=== PATIENT | female | born 1960 | race American Indian/Alaskan Native ===

== ENCOUNTER 2017-01-25 00:03 | Emergency (ER) | payer SELFPAY ==
[2017-01-25 00:18] VITALS: BP 156/88
[2017-01-25 01:18] LABS: Basophils % (Auto) 0.8 % (0.0-1.8); Eosinophils % (Auto) 2.6 % (0.0-4.3); Hematocrit 38.2 % (30.3-42.9); Hemoglobin 12.7 gm/dl (10.1-14.3); Mean Corpuscular HGB Conc 33 % (30-34); Mean Corpuscular Hemoglobin 28 pg (28-32); Mean Corpuscular Volume 83 fl (79-97); Platelet Count 284 K/mm3 (140-440); Red Blood Count 4.59 M/mm3 (3.65-5.03); Red Cell Distribution Width 15.7 % (13.2-15.2); White Blood Count 8.9 K/mm3 (4.5-11.0)
[2017-01-25 01:40] LABS: Anion Gap 17 mmol/L; BUN/Creatinine Ratio 18.33; Blood Urea Nitrogen 11 mg/dL (7-17); Calcium 9.4 mg/dL (8.4-10.2); Carbon Dioxide 27 mmol/L (22-30); Chloride 99.8 mmol/L (98-107); Glucose 99 mg/dL (65-100); Potassium 3.3 mmol/L (3.6-5.0); Sodium 140 mmol/L (137-145)
== END 2017-01-25 04:00 | disposition left against medical advice (07) ==
LOC: ED 00:03
DX: R07.9 Chest pain, unspecified (principal); Z53.21 Procedure and treatment not carried out due to patient leaving prior to being seen by health care provider
CPT/HCPCS: 36415; 80048; 82962; 84484; 84703; 85025; 93005; 93010

== ENCOUNTER 2017-04-30 10:07 | Emergency (ER) | payer OTHER ==
[2017-04-30 10:48] LABS: Hematocrit 38.6 % (30.3-42.9); Hemoglobin 12.6 gm/dl (10.1-14.3); Mean Corpuscular HGB Conc 33 % (30-34); Mean Corpuscular Hemoglobin 28 pg (28-32); Mean Corpuscular Volume 85 fl (79-97); Platelet Count 291 K/mm3 (140-440); Red Blood Count 4.56 M/mm3 (3.65-5.03); Red Cell Distribution Width 14.5 % (13.2-15.2); White Blood Count 9.8 K/mm3 (4.5-11.0)
[2017-04-30 10:53] LABS: Anion Gap 16 mmol/L; BUN/Creatinine Ratio 28; Blood Urea Nitrogen 14 mg/dL (7-17); Calcium 8.9 mg/dL (8.4-10.2); Carbon Dioxide 28 mmol/L (22-30); Chloride 103.6 mmol/L (98-107); Glucose 92 mg/dL (65-100); Potassium 3.9 mmol/L (3.6-5.0); Sodium 144 mmol/L (137-145)
[2017-04-30 11:16] LABS: Bilirubin,Urine NEG (Negative); Blood,Urine NEG (Negative); Ketones,Urine NEG (Negative); Leukocyte Esterase,Urine NEG (Negative); Nitrite,Urine NEG (Negative); Protein,Urine <15 mg/dL mg/dL (Negative); RBC,Urine < 1.0 /HPF (0.0-6.0); Urobilinogen,Urine < 2.0 mg/dL (<2.0); WBC,Urine < 1.0 /HPF (0.0-6.0)
[2017-04-30 11:53] LABS: Basophils % (Manual) 0 % (0.0-1.8); Blastocytes % (Manual) 0 %
[2017-04-30 11:54] LABS: Diff Status Complete; RBC Morphology Normal
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
[2017-04-30 17:57] VITALS: BP 112/42
== END 2017-04-30 17:55 | disposition home or self-care (01) ==
LOC: ED 10:07
DX: R42 Dizziness and giddiness (principal); R53.1 Weakness; I10 Essential (primary) hypertension; E11.9 Type 2 diabetes mellitus without complications; J45.909 Unspecified asthma, uncomplicated; F12.10 Cannabis abuse, uncomplicated; Z87.891 Personal history of nicotine dependence; Z88.2 Allergy status to sulfonamides
CPT/HCPCS: 36415; 80048; 81001; 83690; 85007; 85025; 93005; 93010; 99283

== ENCOUNTER 2017-08-29 08:29 | Emergency (ER) | payer SELFPAY ==
[2017-08-29 09:03] VITALS: BP 143/77
--- NOTE | 2017-08-29 10:09 | Emergency Department Report ---
ED General Adult HPI - General Chief complaint: Sore Throat Stated complaint: SORE THROAT Time Seen by Provider: 08/29/17 10:01 Source: patient Mode of arrival: Ambulatory Limitations: No Limitations - History of Present Illness Initial comments: Patient is 56 years old female history of hypertension and asthma. Presented with a 3 day history of sore throat and fever. Patient denied any difficulty swallowing or difficulty breathing. She stated that her son has the same symptoms. - Related Data Previous Rx's Medication Instructions Recorded Last Taken Type Lisinopril/Hydrochlorothiazide 1 tab PO QDAY #30 tablet 02/26/13 12/23/15 Rx [Zestoretic 10-12.5 mg] Ibuprofen [Motrin 800 MG tab] 800 mg PO Q8HR #30 tablet 09/26/15 12/23/15 Rx Azithromycin [Zithromax Z-MAYKEL] 1 dose PO DAILY 5 Days tab 12/24/15 Unknown Rx HYDROcodone/APAP 5-325 [[place] 1 each PO Q6HR PRN #20 tablet 12/24/15 Unknown Rx 5/325] Prednisone [predniSONE 10 mg 10 mg PO .TAPER #1 tab.ds.pk 12/24/15 Unknown Rx (6-Day Pack, 21 Tabs)] Meclizine [Antivert] 25 mg PO TID PRN #15 tablet 04/30/17 Unknown Rx Allergies Allergy/AdvReac Type Severity Reaction Status Date / Time sulfamethoxazole Allergy Hives Verified 04/30/17 10:24 [From Bactrim] trimethoprim [From Bactrim] Allergy Hives Verified 04/30/17 10:24 ED Review of Systems ROS: Stated complaint: SORE THROAT Other details as noted in HPI Comment: All other systems reviewed and negative ENT: throat pain Respiratory: denies: cough, shortness of breath Cardiovascular: denies: chest pain ED Past Medical Hx - Past Medical History Hx Hypertension: Yes Hx Diabetes: Yes Hx Asthma: Yes Additional medical history: Obesity - Surgical History Past Surgical History?: No - Social History Smoking Status: Never Smoker Substance Use Type: None - Medications Home Medications: Home Medications Medication Instructions Recorded Confirmed Last Taken Type Lisinopril/Hydrochlorothiazide 1 tab PO QDAY #30 tablet 02/26/13 12/24/15 Rx [Zestoretic 10-12.5 mg] Ibuprofen [Motrin 800 MG tab] 800 mg PO Q8HR #30 tablet 09/26/15 12/24/15 Rx Azithromycin [Zithromax Z-MAYKEL] 1 dose PO DAILY 5 Days tab 12/24/15 Unknown Rx HYDROcodone/APAP 5-325 [[place] 1 each PO Q6HR PRN #20 tablet 12/24/15 Unknown Rx 5/325] Prednisone [predniSONE 10 mg 10 mg PO .TAPER #1 tab.ds.pk 12/24/15 Unknown Rx (6-Day Pack, 21 Tabs)] Meclizine [Antivert] 25 mg PO TID PRN #15 tablet 04/30/17 Unknown Rx ED Physical Exam - General Limitations: No Limitations General appearance: alert, in no apparent distress - Head Head exam: Present: atraumatic, normocephalic - ENT ENT exam: Present: normal exam, other (pharyngeal erythema, tonsillar enlargement and exudates) - Neck Neck exam: Present: normal inspection, full ROM. Absent: tenderness, meningismus - Cardiovascular Cardiovascular Exam: Present: regular rate, normal rhythm, normal heart sounds - GI/Abdominal GI/Abdominal exam: Present: soft. Absent: distended, tenderness, guarding - Extremities Exam Extremities exam: Present: normal inspection, full ROM - Neurological Exam Neurological exam: Present: alert, oriented X3, CN II-XII intact, normal gait - Skin Skin exam: Present: warm, intact, normal color ED Course Vital Signs 08/29/17 09:00 Temperature 99 F Pulse Rate 75 Respiratory 16 Rate Blood Pressure 143/77 O2 Sat by Pulse 99 Oximetry ED Medical Decision Making - Medical Decision Making Strep test is positive. I will prescribe amoxicillin for 10 days. Advised patient to follow up with her primary care physician in the next 2-3 days. Critical care attestation.: If time is entered above; I have spent that time in minutes in the direct care of this critically ill patient, excluding procedure time. ED Disposition Clinical Impression: Tonsillitis, Strep pharyngitis Disposition: TO HOME OR SELFCARE Is pt being admited?: No Condition: Stable Instructions: Tonsillitis (ED), Strep Throat (ED) Referrals: PRIMARY CARE,MD [Primary Care Provider] - 3-5 Days
== END 2017-08-29 11:42 | disposition home or self-care (01) ==
LOC: ED 08:29
DX: J02.0 Streptococcal pharyngitis (principal); I10 Essential (primary) hypertension; E11.9 Type 2 diabetes mellitus without complications; J45.909 Unspecified asthma, uncomplicated; Z88.2 Allergy status to sulfonamides
CPT/HCPCS: 87430; 99283

== ENCOUNTER 2018-02-14 08:55 | Emergency (ER) | payer MEDICAID ==
[2018-02-14 10:08] VITALS: BP 131/79
[2018-02-14 10:25] LABS: Basophils # (Auto) 0.1 K/mm3 (0.0-0.1); Basophils % (Auto) 0.8 % (0.0-1.8); Eosinophils # (Auto) 0.1 K/mm3 (0.0-0.4); Eosinophils % (Auto) 0.8 % (0.0-4.3); Hemoglobin 12.7 gm/dl (10.1-14.3); Lymphocytes # (Auto) 2.2 K/mm3 (1.2-5.4); Lymphocytes % (Auto) 24.5 % (13.4-35.0); Mean Corpuscular HGB Conc 33 % (30-34); Mean Corpuscular Hemoglobin 27 pg (28-32); Mean Corpuscular Volume 82 fl (79-97); Monocytes # (Auto) 0.6 K/mm3 (0.0-0.8); Monocytes % (Auto) 6.8 % (0.0-7.3); Platelet Count 304 K/mm3 (140-440); Red Blood Count 4.75 M/mm3 (3.65-5.03)
[2018-02-14 10:42] LABS: BUN/Creatinine Ratio 35; Blood Urea Nitrogen 14 mg/dL (7-17); Calcium 9.5 mg/dL (8.4-10.2); Hemolysis Index 9
[2018-02-14] MEDS ORDERED: NACL 0.9% 1000 ML 1,000 ML IV ONE (11:06)
--- NOTE | 2018-02-14 11:08 | Emergency Department Report ---
ED Dizziness HPI - General Chief Complaint: Dizziness Stated Complaint: N/V,DIZZINESS Time Seen by Provider: 02/14/18 11:05 Source: patient, family Mode of arrival: Ambulatory Limitations: No Limitations - History of Present Illness Initial Comments: This is a 57-year-old female here reports that she is dizzy with some nausea and vomiting and started 5 days ago but is getting worse today. Denies any fever or chills. She reports nasal congestion and runny nose with clogged ear sensation. She has a history of diabetes high blood pressure and hypertension. Denies any headache shortness of breath or chest pain. Pain is 0-10 MD Complaint: dizziness, lightheadedness, other (nausea and vomiting) Onset/Timin -: days(s) Timing: gradual onset Description: sense of movement, "room spinning", lightheadedness History of Same: Yes History of Trauma: No Severity: moderate Improves With: nothing Worsens With: nothing Associated Symptoms: denies: ataxia, chest pain, confusion, cough, diaphoresis, fever/chills, loss of appetite, malaise, rash, seizure, shortness of breath, syncope, weakness - Related Data Previous Rx's Medication Instructions Recorded Last Taken Type Lisinopril/Hydrochlorothiazide 1 tab PO QDAY #30 tablet 02/26/13 12/23/15 Rx [Zestoretic 10-12.5 mg] Ibuprofen [Motrin 800 MG tab] 800 mg PO Q8HR #30 tablet 09/26/15 12/23/15 Rx Azithromycin [Zithromax Z-MAYKEL] 1 dose PO DAILY 5 Days tab 12/24/15 Unknown Rx HYDROcodone/APAP 5-325 [[place] 1 each PO Q6HR PRN #20 tablet 12/24/15 Unknown Rx 5/325] Amoxicillin [Amoxicillin TAB] 875 mg PO BID #20 tablet 08/29/17 Unknown Rx Cetirizine HCl [ZyrTEC] 10 mg PO QDAY 14 Days #14 capsule 02/14/18 Unknown Rx Fluticasone [Flonase] 1 spray NS QDAY 14 Days #1 bottle 02/14/18 Unknown Rx Meclizine [Antivert] 25 mg PO TID PRN #15 tablet 02/14/18 Unknown Rx Prednisone [predniSONE 10 mg 10 mg PO .TAPER #1 tab.ds.pk 02/14/18 Unknown Rx (6-Day Pack, 21 Tabs)] Allergies Allergy/AdvReac Type Severity Reaction Status Date / Time sulfamethoxazole Allergy Hives Verified 04/30/17 10:24 [From Bactrim] trimethoprim [From Bactrim] Allergy Hives Verified 04/30/17 10:24 ED Review of Systems ROS: Stated complaint: N/V,DIZZINESS Other details as noted in HPI Constitutional: denies: chills, fever Eyes: denies: eye pain, eye discharge, vision change ENT: denies: ear pain, throat pain, congestion Respiratory: cough. denies: shortness of breath, SOB with exertion, SOB at rest , stridor, wheezing Cardiovascular: denies: chest pain, palpitations, edema, syncope Gastrointestinal: denies: abdominal pain, nausea, vomiting, diarrhea, hematemesis, hematochezia Genitourinary: denies: urgency, dysuria, discharge Musculoskeletal: denies: back pain, joint swelling, arthralgia, myalgia Skin: denies: rash, lesions Neurological: vertigo. denies: headache, weakness, numbness, paresthesias, confusion, abnormal gait Psychiatric: denies: anxiety, depression ED Past Medical Hx - Past Medical History Previous Medical History?: Yes Hx Hypertension: Yes Hx Diabetes: Yes Hx Asthma: Yes Additional medical history: Obesity - Surgical History Past Surgical History?: No - Family History Family history: hypertension - Social History Smoking Status: Never Smoker Substance Use Type: None - Medications Home Medications: Home Medications Medication Instructions Recorded Confirmed Last Taken Type Lisinopril/Hydrochlorothiazide 1 tab PO QDAY #30 tablet 02/26/13 12/24/15 Rx [Zestoretic 10-12.5 mg] Ibuprofen [Motrin 800 MG tab] 800 mg PO Q8HR #30 tablet 09/26/15 12/24/15 Rx Azithromycin [Zithromax Z-MYAKEL] 1 dose PO DAILY 5 Days tab 12/24/15 Unknown Rx HYDROcodone/APAP 5-325 [[place] 1 each PO Q6HR PRN #20 tablet 12/24/15 Unknown Rx 5/325] Amoxicillin [Amoxicillin TAB] 875 mg PO BID #20 tablet 08/29/17 Unknown Rx Cetirizine HCl [ZyrTEC] 10 mg PO QDAY 14 Days #14 capsule 02/14/18 Unknown Rx Fluticasone [Flonase] 1 spray NS QDAY 14 Days #1 bottle 02/14/18 Unknown Rx Meclizine [Antivert] 25 mg PO TID PRN #15 tablet 02/14/18 Unknown Rx Prednisone [predniSONE 10 mg 10 mg PO .TAPER #1 tab.ds.pk 02/14/18 Unknown Rx (6-Day Pack, 21 Tabs)] ED Physical Exam - General Limitations: No Limitations General appearance: alert, in no apparent distress - Head Head exam: Present: atraumatic, normocephalic, normal inspection - Eye Eye exam: Present: normal appearance, PERRL, EOMI. Absent: nystagmus, periorbital swelling, periorbital tenderness Pupils: Present: normal accommodation - ENT ENT exam: Present: normal exam, normal orophraynx, mucous membranes moist, normal external ear exam, other (lateral nasal mucosa congested with clear drainage). Absent: TM's normal bilaterally (bilateral TM congested) - Neck Neck exam: Present: normal inspection, full ROM. Absent: tenderness, lymphadenopathy - Respiratory Respiratory exam: Present: normal lung sounds bilaterally, other (dry cough). Absent: respiratory distress, chest wall tenderness - Cardiovascular Cardiovascular Exam: Present: regular rate, normal rhythm, normal heart sounds. Absent: systolic murmur, diastolic murmur - GI/Abdominal GI/Abdominal exam: Present: soft, normal bowel sounds. Absent: distended, tenderness, rigid - Extremities Exam Extremities exam: Present: normal inspection, full ROM, normal capillary refill , other (No cce. + 2 pulses in all extremities, no neurovascular compromise). Absent: tenderness, pedal edema, joint swelling, calf tenderness - Back Exam Back exam: Present: normal inspection, full ROM, other (ambulance without any difficulties). Absent: tenderness, CVA tenderness (R), CVA tenderness (L), muscle spasm, paraspinal tenderness, vertebral tenderness, rash noted - Neurological Exam Neurological exam: Present: alert, oriented X3, normal gait, reflexes normal. Absent: motor sensory deficit - Psychiatric Psychiatric exam: Present: normal affect, normal mood - Skin Skin exam: Present: warm, dry, intact, normal color. Absent: rash ED Course Vital Signs 02/14/18 10:00 Temperature 97.8 F Pulse Rate 75 Respiratory 18 Rate Blood Pressure 131/79 O2 Sat by Pulse 97 Oximetry - Reevaluation(s) Reevaluation #1: 02/14/18 11:07 Patient placed in treatment room and to receive Antivert, Decadron and normal saline 1 L Reevaluation #2: 02/14/18 11:39 She is feeling better after IV fluid, Decadron and Antivert ED Medical Decision Making - Lab Data Result diagrams: 02/14/18 10:15 02/14/18 10:15 Lab Results 02/14/18 02/14/18 Range/Units 10:15 10:15 WBC 8.9 (4.5-11.0) K/mm3 RBC 4.75 (3.65-5.03) M/mm3 Hgb 12.7 (10.1-14.3) gm/dl Hct 39.0 (30.3-42.9) % MCV 82 (79-97) fl MCH 27 L (28-32) pg MCHC 33 (30-34) % RDW 15.0 (13.2-15.2) % Plt Count 304 (140-440) K/mm3 Lymph % (Auto) 24.5 (13.4-35.0) % [place] % (Auto) 6.8 (0.0-7.3) % Eos % (Auto) 0.8 (0.0-4.3) % Baso % (Auto) 0.8 (0.0-1.8) % Lymph # 2.2 (1.2-5.4) K/mm3 [place] # 0.6 (0.0-0.8) K/mm3 Eos # 0.1 (0.0-0.4) K/mm3 Baso # 0.1 (0.0-0.1) K/mm3 Seg Neutrophils % 67.1 (40.0-70.0) % Seg Neutrophils # 6.0 (1.8-7.7) K/mm3 Sodium 140 (137-145) mmol/L Potassium 4.6 (3.6-5.0) mmol/L Chloride 100.4 (98-107) mmol/L Carbon Dioxide 29 (22-30) mmol/L Anion Gap 15 mmol/L BUN 14 (7-17) mg/dL Creatinine 0.4 L (0.7-1.2) mg/dL Estimated GFR > 60 ml/min BUN/Creatinine Ratio 35 % Glucose 99 (65-100) mg/dL Calcium 9.5 (8.4-10.2) mg/dL - EKG Data -: EKG Interpreted by Me EKG shows normal: sinus rhythm Rate: normal (63 bpm) - EKG Data Interpretation: no acute changes, normal EKG - Medical Decision Making This is a 57-year-old female here report that she is having dizziness, nausea and vomiting and reported . She reports that this happened to her several times she gets vertigo. Labs: CBC and BMP stable EKG normal sinus rhythm at 68 bpm Assessment/plan 1: Upper respiratory with cough and congestion-sheet given Decadron 10 mg IV and will be sent home on Deltasone, Flonase and Zyrtec 2: Vertigo-given Antivert 50 mg. Emergency room and she feels better and was sent home on Antivert 3: As in vomiting-saline 1 L in the emergency room and Zofran 8 mg and was sent home on Zofran She is stable and discharged home in stable condition. I instructed her that she is to follow-up with her primary care physician and she voiced understanding. Vital signs are stable she is afebrile and feeling better and discharged home in stable condition with prescription for Antivert, Zofran, Deltasone, Flonase and Zyrtec Critical care attestation.: If time is entered above; I have spent that time in minutes in the direct care of this critically ill patient, excluding procedure time. ED Disposition Clinical Impression: Vertigo, URI with cough and congestion Disposition: DC-01 TO HOME OR SELFCARE Is pt being admited?: No Does the pt Need Aspirin: No Condition: Stable Instructions: Vertigo (ED), Upper Respiratory Infection (ED) Additional Instructions: Please increase her fluid intake Take medication as prescribed Prescriptions: Cetirizine HCl [ZyrTEC] 10 mg PO QDAY 14 Days #14 capsule Fluticasone [Flonase] 1 spray NS QDAY 14 Days #1 bottle Meclizine [Antivert] 25 mg PO TID PRN #15 tablet PRN Reason: Vertigo Prednisone [predniSONE 10 mg (6-Day Pack, 21 Tabs)] 10 mg PO .TAPER #1 tab.ds.pk Referrals: PRIMARY CARE, [Primary Care Provider] - 02/16/18
[2018-02-14] MEDS ORDERED: ANTIVERT PO ONE (11:30)
[2018-02-14] MEDS ORDERED: DECADRON IV ONE (11:30)
== END 2018-02-14 12:46 | disposition home or self-care (01) ==
LOC: ED 08:55
DX: J06.9 Acute upper respiratory infection, unspecified (principal); R42 Dizziness and giddiness; Z88.2 Allergy status to sulfonamides; J45.909 Unspecified asthma, uncomplicated; I10 Essential (primary) hypertension
CPT/HCPCS: 36415; 80048; 85025; 93005; 93010; 96361; 96374; 99284; J1100; J7030

== ENCOUNTER 2021-11-17 17:14 | Emergency (ER) | payer MEDICAID ==
[2021-11-17 18:39] VITALS: BP 180/76
== END 2021-11-18 04:59 | disposition left against medical advice (07) ==
LOC: ED 17:14
DX: R10.9 Unspecified abdominal pain (principal); Z53.21 Procedure and treatment not carried out due to patient leaving prior to being seen by health care provider